=== PATIENT | female | born 1970 | race Caucasian/White ===

== ENCOUNTER → 2020-10-20 | Outpatient (CLI) | payer OTHER ==
[~2020-10-20] MED LIST: ALIG4CAP PO; NEXI20CA PO; ORTH1TAB8 PO; PEPP90CA PO; VITA-243 PO
== END ==
LOC: M LABSMTC 08:50
PROVIDERS: ATTEND Surgery
DX: Z01.812 Encounter for preprocedural laboratory examination (principal); Z20.822 Contact with and (suspected) exposure to COVID-19

== ENCOUNTER 2020-10-25 07:35 | Day surgery (SDC) | payer BC, OTHER ==
[~2020-10-25] VITALS: Ht 154.9 cm; Wt 79.1 kg
[~2020-10-25 07:35] MED LIST changes: +NS 1,000 ML IV ONE
[2020-10-25] MEDS ORDERED: propofoL 500 MG/50 ML VIAL As Ordered ONE (08:00)
[2020-10-25] MEDS ORDERED: LIDOCAINE 2% 100MG/5ML SDV (FOR ANES.) As Ordered ONE (08:00)
--- NOTE | 2020-10-25 08:46 | ROOR ---
Patient Name: Jordyn Coates Procedure Date: 10/25/2020 8:30 AM Date of : 1970 Age: 50 Room: [facility] Gender: Female Note Status: Finalized Procedure: Upper GI endoscopy Indications: Suspected esophageal reflux Providers: Luis Krishna Jr, MD Referring MD: Yenifer De La Cruz NP Requesting Provider: Medicines: Propofol per Anesthesia Complications: No immediate complications. Procedure: Pre-Anesthesia Assessment: - Prior to the procedure, a History and Physical was performed, and patient medications and allergies were reviewed. The patient is competent. The risks and benefits of the procedure and the sedation options and risks were discussed with the patient. All questions were answered and informed consent was obtained. Patient identification and proposed procedure were verified by the physician and the nurse in the pre-procedure area and in the procedure room. Mental Status Examination: alert and oriented. Airway Examination: normal oropharyngeal airway and neck mobility. Respiratory Examination: clear to auscultation. CV Examination: normal. ASA Grade Assessment: II - A patient with mild systemic disease. After reviewing the risks and benefits, the patient was deemed in satisfactory condition to undergo the procedure. The anesthesia plan was to use moderate sedation / analgesia (conscious sedation). Immediately prior to administration of medications, the patient was re-assessed for adequacy to receive sedatives. The heart rate, respiratory rate, oxygen saturations, blood pressure, adequacy of pulmonary ventilation, and response to care were monitored throughout the procedure. The physical status of the patient was re-assessed after the procedure. The Endoscope was introduced through the mouth, and advanced to the second part of duodenum. The upper GI endoscopy was accomplished without difficulty. The patient tolerated the procedure well. Findings: The upper third of the esophagus, middle third of the esophagus and lower third of the esophagus were normal. A small hiatal hernia was present. The cardia, gastric antrum, prepyloric region of the stomach and pylorus were normal. Multiple pedunculated polyps with no bleeding and no stigmata of recent bleeding were found in the gastric body. Biopsies were taken with a cold forceps for histology. The duodenal bulb, first portion of the duodenum and second portion of the duodenum were normal. Biopsies for histology were taken with a cold forceps for evaluation of celiac disease. Bilious fluid was found on the greater curvature of the stomach. Impression: - Normal upper third of esophagus, middle third of esophagus and lower third of esophagus. - Small hiatal hernia. - Normal cardia, antrum, prepyloric region of the stomach and pylorus. - Multiple gastric polyps. Biopsied. - Normal duodenal bulb, first portion of the duodenum and second portion of the duodenum. Biopsied. Recommendation: - Discharge patient to home (ambulatory). - Return to my office at appointment to be scheduled. Procedure Code(s): --- Professional --- 18584, Esophagogastroduodenoscopy, flexible, transoral; with biopsy, single or multiple Diagnosis Code(s): --- Professional --- K44.9, Diaphragmatic hernia without obstruction or gangrene K31.7, Polyp of stomach and duodenum CPT copyright 2019 [employer]. All rights reserved. The codes documented in this report are preliminary and upon hat stock laminating machine operator review may be revised to meet current compliance requirements. Luis Krishna MD Luis Krishna Jr, MD 10/25/2020 8:45:39 AM Electronically signed by Luis Krishna Jr, MD Number of Addenda: 0 Note Initiated On: 10/25/2020 8:30 AM Estimated Blood Loss: Estimated blood loss: none.
--- NOTE | 2020-10-25 09:01 | ROOR ---
Patient Name: Jordyn Coates Procedure Date: 10/25/2020 8:31 AM Date of : 1970 Age: 50 Room: [facility] Gender: Female Note Status: Finalized Procedure: Colonoscopy Indications: Clinically significant diarrhea of unexplained origin Providers: Luis Krishna Jr, MD Referring MD: Yenifer De La Cruz NP Requesting Provider: Medicines: Propofol per Anesthesia Complications: No immediate complications. Procedure: Pre-Anesthesia Assessment: - Prior to the procedure, a History and Physical was performed, and patient medications and allergies were reviewed. The patient is competent. The risks and benefits of the procedure and the sedation options and risks were discussed with the patient. All questions were answered and informed consent was obtained. Patient identification and proposed procedure were verified by the physician and the nurse in the pre-procedure area and in the procedure room. Mental Status Examination: alert and oriented. Airway Examination: normal oropharyngeal airway and neck mobility. Respiratory Examination: clear to auscultation. CV Examination: normal. ASA Grade Assessment: II - A patient with mild systemic disease. After reviewing the risks and benefits, the patient was deemed in satisfactory condition to undergo the procedure. The anesthesia plan was to use moderate sedation / analgesia (conscious sedation). Immediately prior to administration of medications, the patient was re-assessed for adequacy to receive sedatives. The heart rate, respiratory rate, oxygen saturations, blood pressure, adequacy of pulmonary ventilation, and response to care were monitored throughout the procedure. The physical status of the patient was re-assessed after the procedure. The Colonoscope was introduced through the anus and advanced to the cecum, identified by appendiceal orifice and ileocecal valve. The colonoscopy was performed without difficulty. The patient tolerated the procedure well. The quality of the bowel preparation was adequate. Findings: The rectum, sigmoid colon, descending colon, transverse colon, ascending colon, cecum, appendiceal orifice and ileocecal valve appeared normal. Biopsies for histology were taken with a cold forceps from the ascending colon, right colon, transverse colon, descending colon and sigmoid colon for evaluation of microscopic colitis. Non-bleeding external and internal hemorrhoids were found during endoscopy. The hemorrhoids were Grade II (internal hemorrhoids that prolapse but reduce spontaneously) and Grade III (internal hemorrhoids that prolapse but require manual reduction). Impression: - The rectum, sigmoid colon, descending colon, transverse colon, ascending colon, cecum, appendiceal orifice and ileocecal valve are normal. Biopsied. - Non-bleeding external and internal hemorrhoids. Recommendation: - Repeat colonoscopy in 10 years for screening purposes. Procedure Code(s): --- Professional --- 64002, Colonoscopy, flexible; with biopsy, single or multiple Diagnosis Code(s): --- Professional --- K64.2, Third degree hemorrhoids R19.7, Diarrhea, unspecified K58.0, Irritable bowel syndrome with diarrhea CPT copyright 2019 [employer]. All rights reserved. The codes documented in this report are preliminary and upon toolroom clerk review may be revised to meet current compliance requirements. Luis Krishna MD Luis Krishna Jr, MD 10/25/2020 9:01:02 AM Electronically signed by Luis Krishna Jr, MD Number of Addenda: 0 Note Initiated On: 10/25/2020 8:31 AM Estimated Blood Loss: Estimated blood loss: none.
== END 2020-10-25 09:20 | disposition home or self-care (01) ==
LOC: M OPP 07:35
PROVIDERS: ATTEND Surgery
DX: K63.5 Polyp of colon (principal); K64.2 Third degree hemorrhoids; K58.0 Irritable bowel syndrome with diarrhea; K21.9 Gastro-esophageal reflux disease without esophagitis; K44.9 Diaphragmatic hernia without obstruction or gangrene; K31.7 Polyp of stomach and duodenum; Z88.1 Allergy status to other antibiotic agents; Z88.2 Allergy status to sulfonamides; Z88.5 Allergy status to narcotic agent; Z88.8 Allergy status to other drugs, medicaments and biological substances; Z91.040 Latex allergy status; Z91.048 Other nonmedicinal substance allergy status